=== PATIENT | female | born 1945 | race African-American/Black ===

== ENCOUNTER → 2017-02-02 | Outpatient (CLI) | payer MEDICARE ==
[~2017-02-02] MED LIST: AMLODIPINE BESYL5 MG PO; ATENOLOL50 MG PO; ESCITALOPRAM OX20 MG PO; FERRO-TIME325 MG PO; FLAGYL PO; FLEXERIL10 MG PO; LORTAB 5/500 TA1 TA1 PO; PRAVASTATIN SOD40 MG PO; SEROQUEL50 M1 PO; VITAMIN D-32000 UNI1 PO
--- NOTE | ~2017-02-02 | MY29 ---
[facility] A Service of [facility] RADIOLOGY TEXT RESULTS PATIENT: BLADE RAMOS LOCATION: [facility] : 47 UNIT #: [id number] AGE: [address]: Dmitri Rowland MD SEX: F ORDER DR: [id number] [facility] [address] [place], [place] [address] [id number] O MR#: [id number] Acc #: [id number] NAME: BLADE RAMOS : 1945 SEX: F STUDY DATE/TIME: 02/02/2017 11:45 UNIT: [facility] ROOM: STUDY DESCRIPTION: MY JUVE SCREENING W/ CAD BILAT Attending Physician: Dmitri Rowland M.D. Referring Physician: Dmitri Rowland M.D. Ordering Physician: Dmitri Rowland M.D. Primary Care Physician: Dmitri Rowland M.D. MEDICAL IMAGING REPORT This report is preliminary unless electronic signature is present EXAM Digital screening mammogram 02/02/2017 HISTORY 72-year-old woman, no risk elevation. Interim weight loss. Annual screening. COMPARISON STUDIES Mammograms 09/11/2014. FINDINGS Digital imaging of each breast was completed utilizing a two-view examination of each breast in craniocaudal and mediolateral-oblique projections. Review and interpretation of digital mammograms include a second review in conjunction with FDA-approved CAD device. There is a normal parenchymal presentation bilaterally consistent with the patient's age. There are no breast masses imaged and no parenchymal asymmetry is visualized. There are no suspicious microcalcifications and I see no focal architectural disturbance. IMPRESSION Negative screening digital mammogram. One-year followup recommended. Patients over the age of 40 are entered into a reminder system with target due date for the next mammogram. A result letter will also be sent to the patient. BIRADS: 1 Negative Dictated by... Chilango Stoddard M.D. [facility] A Service [facility] RADIOLOGY TEXT RESULTS PATIENT: BLADE RAMOS LOCATION: [facility] : 47 UNIT #: [id number] AGE: [address]: Dmitri Rowland MD SEX: F ORDER DR: THIS IS AN ELECTRONICALLY VERIFIED REPORT Chilango Stoddard M.D. at 02/03/2017 8:10 AM JOYCE/pa TD: 02/02/2017 18:07 JOB #: [id number] MEDICAL IMAGING REPORT Page 1 of 1 COPY
== END | disposition home or self-care (01) ==
LOC: CWCC 10:57
DX: Z12.31 Encounter for screening mammogram for malignant neoplasm of breast (principal)
CPT/HCPCS: G0202